=== PATIENT | female | born 1975 | race Caucasian/White ===

== ENCOUNTER 2016-09-19 10:13 | Inpatient (IN) | payer OTHER ==
[~2016-09-19] VITALS: Ht 162.6 cm; Wt 63.5 kg
[~2016-09-19 10:13] MED LIST: TRAM50TA2 PO
[2016-09-19 13:05] VITALS: BP 135/96; PULSE 92; RESP 14
[2016-09-19] MEDS ORDERED: TIZA4TAB4 (13:36)
[2016-09-19] MEDS ORDERED: FLUO40CA (13:36)
[2016-09-19] MEDS ORDERED: TIZA2TAB3 (13:36)
[2016-09-19] MEDS ORDERED: SERXR300 (13:36)
[2016-09-19] MEDS ORDERED: ZOLP12.52 (13:36)
[2016-09-19] MEDS ORDERED: AMPH30CA (13:36)
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
[2016-09-19] MEDS ORDERED: Alum-Mag Hydrox-Simeth 30 mL Suspension PO PRN (13:55)
[2016-09-19] MEDS ORDERED: Benzocaine-Menthol Lozenge 2/Pkg PO PRN (13:55)
[2016-09-19] MEDS ORDERED: Magnesium Hydroxide 10 mL Oral Concentration PO PRN (13:55)
--- NOTE | 2016-09-19 14:25 | NUR ---
Observations 0700 to 1430 Pt arrived on unit at 1143. Pt completed admission process and she is familiar with our unit from previous stay. Pt signed all paperwork and was given a pair of scrubs to change into. Pt was shown to room 219. Pt affect and mood was flat, isolative, sullen and withdrawn. Pt speech and eye contact was ok. Pt was social with staff when approached. Pt attended lunch in D.R. and ate 100% of her meal. Pt maintained behavior throughout the shift. Pt was in her room resting in bed and on the phone. Pt was polite, pleasant and cooperative. Pt was observed every 15 minutes throughout the shift as ordered. Pt is currently resting in bed with eyes open and respirations apparent.
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
--- NOTE | 2016-09-19 19:00 | NUR ---
Nurses Note Evening Patient has remained in her room except for dinner. She was concerned when she learned her ADD medication was not prescribed stating it was the only medication that has "made my life livable." Patient reported having problems with sleeping in spite of taking Seroquel. She contracts for safety and will be monitored q 15min. for safety and support. Addendum: 09/19/16 at 1908 by MARINA TANNER RN Amended: Links added.
--- NOTE | 2016-09-20 04:27 | NUR ---
Pt isolated to room all of shift. Became agitated after talking to , she states he said she was going to be charged with attempted manslaughter. Pt anxious but able to settle and sleep at 2300. Pt observed every 15 minutes as ordered.
--- NOTE | 2016-09-20 05:21 | NUR ---
nursing, nights, 11-7 s/o- has appeared to sleep after 2300 during q 15 minute assessments. a- no apparent distress. p- monitor behavior/emotional state, quality, times and amount of sleep, use and effect of medication. eliel
--- NOTE | 2016-09-20 10:23 | NUR ---
Nursing Day Shift- S- "I don't have any phone numbers with me. (Staff offered to locate Pt's outpatient MD phone #. Pt's Dairy Nutritionist had reported in court today that the Pt. had an appointment with an LAST REPAIRER this coming Friday.) It's my PCP who I see. I haven't had a Pap smear in 13 years. I'm not bleeding now, but it stopped 5-6 days ago and I have some spotting. No..No..never mind." (Pt. declined to have staff assist with changing the appointment or locating the #.) O- Pt. had slept 7.25 hours last night per staff report. She was awake for breakfast and eat well. Pt. attended court. She was tearful when her case was not dropped, and continued until Friday. Pt. reported abdominal cramping pain of 7/10 at 0950. She denied thoughts of self harm. She was offered and declined Ibuprofen o Tylenol. A- Anxiety, situational stressors. P- Continue BHTP.
[2016-09-20 13:25] VITALS: BP 159/116; PULSE 108; RESP 16
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
--- NOTE | 2016-09-20 17:00 | NUR ---
Community Outreach Worker/Counselor: S: "My children are my everything, my world." O: Patient slept 8 hours last night as per staff. She denies S/I and H/I. She denies auditory and visual hallucinations. She did not rate depression and anxiety. A: Patient is cooperative, irritable, distraught, tearful, labile, limited insight, limited judgment. P: Follow care plan, coordinate out-patient providers.
--- NOTE | 2016-09-20 19:03 | NUR ---
Observations 0900 to 1930 Pt affect and mood was isolative, flat, sullen and emotional. Pt was pretty emotional and upset most of the day. Pt ate meals in D.R. and ate approximately 75% of meals. Pt ate snack. Pt behavior was withdrawn. Pt was in her room most of the shift. Pt gives short answers when approached. Pt did not attend groups or unit activities today. Pt was observed every 15 minutes throughout the shift as ordered.
--- NOTE | 2016-09-20 21:50 | NUR ---
Evening shift note 3pm to 11pm Pt visible on unit this shift, ate dinner in dining room alone, no social interaction, declined wrap up group. Affect constricted, mood neutral. Guarded and superficial with this writer editor. Pt reports an improvement in mood reporting depression at a 3, but presentation incongruent . Pt compliant with medication, denies pain, no side effects or medical issues reported or observed. Monitoring ongoing.
--- NOTE | 2016-09-21 05:13 | NUR ---
Nursing Note Noc Pt asleep upon arrival to unit. Sleep time note 2115 with 8hr sleep uninterrupted. Q15 min safety checks done per protocol, no distress noted. No PRN's given WCTM sleep, safety, behavior
--- NOTE | 2016-09-21 05:38 | NUR ---
Pt isolated to room all of shift. Pt asleep at [id number], 2345. Pt observed every 15 minutes as ordered.
[2016-09-21 10:11] VITALS: BP 122/74; PULSE 93; RESP 16
--- NOTE | 2016-09-21 11:43 | NUR ---
Nursing Day Shift- S/O- Pt. appeared asleep at the start of the day shift. She awoke for breakfast and eat well, then returned to bed. Pt. declined to set a goal. She appears flat and guarded with brief responses. Pt. was asked if she was pleased that her would be home soon and stated: "yes." she reported that her mother in law had visited the unit last evening and they had a pleasant visit. Pt. denied anxiety and rated her depression as 3/10. A- Guarded. Seeking discharge. Appears to have little insight or concern for events that led to [facility]. P- Cont. BHTP. Addendum: 09/21/16 at 1345 by PRAKASH DODSON RN At 1230 Pt. asked for a medication for anxiety that she rated as 7/10. Pt. did not have a PRN ordered. She was encouraged and offered alternative stress reduction techniques, and declined. She appears to be resting in her bed at this time.
--- NOTE | 2016-09-21 14:59 | NUR ---
[employer] Assistant Principal./ c.m. S.:"I'm doing ok, mood is good." O.; met with pt. and MD together in pt.'s room. She was in bed resting in the middle of the morning. She "slept well" last night. She said that meds were "good". She denied side effect of medications. She denied SI/HI, denied AH/VH, denied paranoid/delusional thoughts, denied depression. She rated anxiety at 4/10. She said that she was planing to go back home at time of discharge. She spent all morning in her room. She wasn't interested in the unit activities. A.: pt. is cooperative, isolative, quiet, guarded. She has a flat affect. P.: monitor behavior, encourage pt. to spend more time in a public area; follow care plan.
--- NOTE | 2016-09-21 18:17 | PCM.PNPSY ---
Subjective Date of Service Sep 21, 2016 Subjective Patient reports she is somewhat somnolent this morning, but otherwise is doing okay. She reports her mood as "good." She denies side effects or medical complaints. She reports that her children are in the care of her [id number] and she plans to return home on discharge. She reports her is returning home from deployment due to her admission and events prior to admission. Sleep: 8+ hours, "very well." Appetite: "good" Suicidal and homicidal ideation: denies Auditory hallucinations/Visual hallucinations: denies Other Psychotic Symptoms: N/A Anxiety: 4/10 Depression: 0/10 Current Medications Current Medications Cyclobenzaprine HCl 10 mg HS PO Last administered on 09/19/16 20:13; Admin Dose 10 MG; Start 09/19/16 at 21:00; Stop 09/20/16 at 09:35; Status DC Fluoxetine HCl 40 mg HS PO Last administered on 09/20/16 20:53; Admin Dose 40 MG; Start 09/19/16 at 21:00 Quetiapine Fumarate 300 mg HS PO Last administered on 09/20/16 20:54; Admin Dose 300 MG; Start 09/19/16 at 21:00 Trazodone HCl 100-150 MG HS PRN PO Last administered on 09/20/16 20:54; Admin Dose 100 MG; Start 09/19/16 at 22:35 Mental Status Exam Vital Signs Vital Signs Date Time Temp Pulse Resp B/P Pulse Ox O2 Delivery O2 Flow Rate FiO2 09/21/16 10:11 36.3 93 16 122/74 Appearance: Neat/well groomed Attitude: Cooperative, Guarded (mildly) Behavior: No unusual behavior Affect: Restricted Mood: Anxious (mild by report) Thought Process/Associations: Logical/Sequential, Goal Directed Speech Production: Paucity Speech Rate: Normal Speech Articulation: Normal Thought Content: Appropriate Danger to Self/Suicidal Ideati: None Danger to Others: None Hallucinations: Auditory (Denies), Visual (Denies) Consciousness: Alert Orientation: Person, Place, Date, Situation Memory: Grossly Intact Estimate Intellectual Function: Average Attention/Concentration & Cogn: Grossly Intact Insight: Good Judgement: Limited Mental Health Plan The patient is a 40-year-old female who reportedly was admitted under LUI status for transfer from [facility]. The patient reportedly had allegedly taken 5-6 tablets of Ambien CRP 12.5 mg and showed significant agitation and threats of harm to others. Allegedly there was concern of possible suicidal intent. The patient is exhibiting no signs of acute mental illness at this time though may show increase in symptoms when returns. [place] AXIS I 1. Bipolar disorder, mixed type by history. 2. Rule out major depressive disorder, recurrent type, nonpsychotic. 3. Alcohol abuse, in remission per patient report. 4. Posttraumatic stress disorder, chronic. AXIS II Cluster B personality features. AXIS III 1. Status post overdose of Ambien. 2. History of carpal tunnel. AXIS IV Stressors are noted for absence of with assignment overseas, unemployment. AXIS V Global Assessment of Functioning current 40 Medications Trazodone 100-150mg po nightly Fluoxetine 40mg po nightly Quetiapine 300mg po nightly Treatments 1. The patient is admitted to the inpatient unit and will be provided a safe and secure environment. 2. The patient is denying current active suicidality and is not in need of a one-to-one at this time. 3. The patient is encouraged to participate with group and milieu activities. 4. The patient will be seen by the treatment team on a daily basis to assess symptoms, side effects and response to treatment. 5. The patient will be continued on her current medications. 6. Anticipated length of stay 2-3 days. Dieter Lopez MD Sep 21, 2016 14:57
--- NOTE | 2016-09-21 22:27 | NUR ---
Pt spent majority of evening shift in her room resting. On approach pt was pleasant, affect remains blunted, mood neutral to dysphoric, thoughts organized and linear, reports mood is 7/10, denies depressive symptoms and SI, plan or intent. Pt reports she is looking forward to discharge. Pt reports medication are " helping", denies side effects and no medical issues reported.
--- NOTE | 2016-09-22 01:46 | NUR ---
Observations 1900 to 0700 Pt was in bed when my shift started and remained there for the entire night. Pt first appeared asleep at 21:00 and was observed every 15 minutes through the night as directed.
--- NOTE | 2016-09-22 06:25 | NUR ---
Sleep 11p-7a Adequate sleep through the night with no noted distress or awakening per protocol checks. Total sleep 9+ hours/
--- NOTE | 2016-09-22 11:19 | NUR ---
Nursing Day Shift- S- "I don't want to talk to anybody here because I'm afraid it will be used against me. My kosher inspector told me not to talk to CPS. Anything I say they will use against me. I talked to both my kids. They are at my Mother in laws. I apologized. I'm never going to take Ambien again. I took 1 pill and I don't remember anything that happened until I was in the hospital. They know that wasn't me. My is coming home Friday so that we don't loose the kids. My says he never said he was going to press charges. I'm not suicidal and I'm not going to kill myself." O- Pt. awoke at 0900 for breakfast and eat 100%. She appears flat and worried. Pt. initially was resistant to talking, but then became increasingly verbal. She rated depression as 3/10 and anxiety as 6/10. She reported feeling increased anxiety without her outpatient prescribed amphetamine and muscle relaxer. Pt. was offered and took Robaxin 500 mg at 10 AM. She was tearful when discussing the events that led to her hospitalization. Pt. was encouraged to speak with the MD and Last Greaser regarding CPS and her mood. A- Flat, anxious. P- Cont. BHTP.
[2016-09-22] MEDS ORDERED: Amphetamines (Mixed) XR 10 mg ER24 Capsule PO ONE (14:10)
--- NOTE | 2016-09-22 14:20 | NUR ---
Foam Tank Laminator./c.m. S.:"I'm ok. My mood is pretty good. I'm very concerned about being arrested for a possible murder..." O.: met with pt. and MD together to discuss pt.'s progress. She "slept well" last night. She denied SI/HI, denied AH/VH or paranoid/delusional thoughts. She rated anxiety at 3/10 and she denied depression. She talked to her over the phone. She said that he was "very supportive". He is coming to [place] on Friday around 10:00 am. She admitted that she was worried about her future after discharge from here. She agreed to work on her Safety plan. A.: pt. is cooperative, quiet, has a flat affect, tearful at times. P.: monitor behavior, work on follow up, check Safety plan; follow care plan.
--- NOTE | 2016-09-22 14:25 | PCM.PNPSY ---
Subjective Date of Service Sep 22, 2016 Subjective The patient reports that her mood is "pretty good." She denies side effects from medical complaints. She reports that her [place] the airport on [place] at 10 AM. She reports that he is her primary support at this time. She has been speaking with them every other day and he has been supportive regarding the issues with her children. The patient expressed concern about being switched from tizanidine to methocarbamol, but explained to patient that methocarbamol is less centrally acting. Patient stated that her psychiatrist wanted her body to be relaxed at bedtime. The patient is experiencing some increase in anxiety and irritability and difficulty concentrating. She is requesting a restart of her Adderall. Discussed with patient that she will be restarted on a lower dose this afternoon and observed for response. Sleep: 9+ hours, "very well." Appetite: "Great" Suicidal and homicidal ideation: denies Auditory hallucinations/Visual hallucinations: denies Other Psychotic Symptoms: N/A Anxiety: 3/10 this a.m., higher this afternoon. Patient anxious whether they will be pressing charges on her discharge. Depression: 0/10 Current Medications Current Medications Hydroxyzine Pamoate 50 mg Q4 PRN PO Last administered on 09/22/16t 13:23; Admin Dose 50 MG; Start 09/22/16 at 13:10 Mental Status Exam Appearance: Neat/well groomed Attitude: Cooperative, Guarded (mildly) Behavior: No unusual behavior, Tearful (this afternoon) Affect: Restricted Mood: Anxious Thought Process/Associations: Logical/Sequential, Goal Directed Speech Production: Normal Speech Rate: Normal Speech Articulation: Normal Thought Content: Appropriate Danger to Self/Suicidal Ideati: None Danger to Others: None Hallucinations: Auditory (Denies), Visual (Denies) Consciousness: Alert Orientation: Person, Place, Date, Situation Memory: Grossly Intact Estimate Intellectual Function: Average Attention/Concentration & Cogn: Grossly Intact Insight: Good Judgement: Good Mental Health Plan The patient is a 40-year-old female who reportedly was admitted under LUI status for transfer from [facility]. The patient reportedly had allegedly taken 5-6 tablets of Ambien CRP 12.5 mg and showed significant agitation and threats of harm to others. Allegedly there was concern of possible suicidal intent. The patient reports having been amnestic around the time of the zolpidem ingestion without intent of harming self or others. She is experiencing increasing irritability and mood swings and poor concentration consistent with Adderall withdrawal. The patient was previously prescribed 30 mg which is above the typical target dose of 20 mg. Outside of this milder irritability, she is not exhibiting any major psychiatric symptoms. [place] AXIS I 1. Bipolar disorder, mixed type by history. 2. Rule out major depressive disorder, recurrent type, nonpsychotic. 3. Alcohol abuse, in remission per patient report. 4. Posttraumatic stress disorder, chronic. 5. Attention deficit disorder by patient report AXIS II Cluster B personality traits AXIS III 1. Status post overdose of Ambien. 2. History of carpal tunnel. AXIS IV Stressors are noted for absence of with assignment overseas, unemployment. AXIS V Global Assessment of Functioning current 40 Medications Trazodone 100-150mg po nightly Fluoxetine 40mg po nightly Quetiapine 300mg po nightly Treatments 1. The patient is admitted to the inpatient unit and will be provided a safe and secure environment. 2. The patient is denying current active suicidality and is not in need of a one-to-one at this time. She agrees to notify staff should she have thoughts of harming herself or others. 3. The patient is encouraged to participate with group and milieu activities. 4. The patient will be seen by the treatment team on a daily basis to assess symptoms, side effects and response to treatment. 5. The patient will be continued on her current medications. 6. Will restart Adderall XR 10 mg today and 20 mg as of tomorrow. 7. Continue methocarbamol as less likely to be centrally acting. 8. Anticipated length of stay 2-3 days. Dieter Lopez MD Sep 22, 2016 14:25
--- NOTE | 2016-09-22 22:04 | NUR ---
Evening shift 3pm to 11pm Pt isolating less in her room than in previous days, visible on the unit working on activity pages and talking with peers. Pt reports feeling less irritable and distracted since resuming Adderall. She reports depression and anxiety 10/04. Hygiene and appetite are within normal limits. She is less guarded and more able to engage in spontaneous conversation. Thoughts linear and logical. Denies SI, plan or intent. No side effects reported or medical complaints expressed. Pt took trazodone and Robaxin prn with meds. Addendum: 09/22/16 at 2213 by DENISSE JACINTO RN Amended: Links added.
--- NOTE | 2016-09-23 03:59 | NUR ---
Observations from [id number] Pts affect was flat and pt was isolative this evening, keeping to herself and spending the majority of the evening resting in her room. Pt did not attend wrap up group, but this marketing underwriter checked in with her and she said she met her goal of staying positive and her mood was 7/10. Pt was noted asleep at 2145 and has appeared to remain asleep throughout the night. Pt has been monitored every 15 minutes as directed.
--- NOTE | 2016-09-23 05:19 | NUR ---
Sleep 11p-7a Adequate sleep through the night with no noted distress or awakening per protocol checks. Total sleep 7.25 hours. Trazodone and Robaxin requested and issued to assist with sleep.
[2016-09-23] MEDS: Amphetamines (Mixed) XR 10 mg ER24 Capsule PO SCH (08:33)
[2016-09-23 10:05] VITALS: BP 111/79; PULSE 80; RESP 10
--- NOTE | 2016-09-23 14:37 | PCM.PNPSY ---
Subjective Date of Service Sep 23, 2016 Subjective I spent 60 minutes both reviewing treatment plan and providing supportive/ educational psychotherapy. I spent more than 50% of the time counseling the patient. I reviewed the treatment plan with the patient and discussed options available including the potential risks, benefits and side effects. Debra reports a marked improvement in thought organization and mood stability. Staff reports that she has been active and participating well in one-to-one unit and group activities. She slept 8 hours and denies depression or psychotic symptoms review. She spoke at length about events leading up to episode where she took Ambien, went to sleep and does not recall the dramatic presentation of threatening to harm her son. She repeatedly describes no suicidal ideation or homicidal ideation. She denied a history of harm to others. 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 She presents very calm, contained and rational. She denies medication side effects. Patient was able to identify her medications and what they were used to treat. She appeared to understand the need for medications by the questions she asked during our discussion. Current Medications Current Medications Amphetamine Aspartate/ Amphetam Sulf 10 mg ONCE ONCE PO Last administered on 15:00; Admin Dose 10 MG; Start 09/22/16 at 14:10; Stop 09/22/16 at 14:20 ; Status DC Amphetamine Aspartate/ Amphetam Sulf 20 mg DAILY PO Last administered on 08:33; Admin Dose 20 MG; Start 09/23/16 at 08:30 Hydroxyzine Pamoate 50 mg Q4 PRN PO Last administered on 09/22/16 13:23; Admin Dose 50 MG; Start 09/22/16 at 13:10 Mental Status Exam Vital Signs Vital Signs Date Time Temp Pulse Resp B/P Pulse Ox O2 Delivery O2 Flow Rate FiO2 09/23/16 10:05 36.9 80 10 111/79 Appearance: Neat/well groomed Attitude: Pleasant, Cooperative Behavior: No unusual behavior, Tearful (this afternoon) Affect: Restricted Mood: Euthymic Thought Process/Associations: Logical/Sequential, Goal Directed Speech Production: Normal Speech Rate: Normal Speech Articulation: Normal Thought Content: Appropriate Danger to Self/Suicidal Ideati: None Danger to Others: None Consciousness: Alert Orientation: Person, Place, Date, Situation Memory: Grossly Intact Estimate Intellectual Function: Average Attention/Concentration & Cogn: Grossly Intact Insight: Good Judgement: Good Mental Health Plan The patient is a 40-year-old female who was admitted under LUI status for transfer from [facility]. The patient had allegedly taken 5-6 tablets of Ambien CRP 12.5 mg and showed significant agitation and threats of harm to others. Initially there was concern of possible suicidal intent. The patient reports having been amnestic around the time of the zolpidem ingestion without intent of harming self or others. She is no longer experiencing difficulty with mood or thought organization.. She is not exhibiting any major psychiatric symptoms. I reviewed her records as well as spent a significant amount of time reviewing client's past history. She was able to detail a reasonable safety plan with me. She agreed to have her come meet with me tomorrow at noon. If her is able to collaborate her history I am recommending dropping the 14 day hold petition and discharging to home with recommendations for outpatient care [place] AXIS I 1. 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 2. Alcohol abuse, in remission per patient report. 3. Posttraumatic stress disorder, chronic. 4. Attention deficit disorder by patient report AXIS II deferred AXIS III 1. Status post overdose of Ambien. 2. History of carpal tunnel. AXIS IV Stressors are noted for absence of with assignment overseas, unemployment. AXIS V Global Assessment of Functioning current 50 Treatments 1. The patient is admitted to the inpatient unit and will be provided a safe and secure environment. 2. The patient is denying current active suicidality and is not in need of a one-to-one at this time. She agrees to notify staff should she have thoughts of harming herself or others. 3. The patient is encouraged to participate with group and milieu activities. 4. The patient will be seen by the treatment team on a daily basis to assess symptoms, side effects and response to treatment. 5. The patient will be continued on her current medications. 6. Adderall XR 10 mg today and 20 mg Trazodone 100-150mg po nightly Fluoxetine 40mg po nightly Quetiapine 300mg po nightly 7. Continue methocarbamol as less likely to be centrally acting. 8. I plan to drop clients hold tomorrow, will either have her sign in voluntary if she requests further treatment or discharge to home with and follow-up with intensive outpatient services. Marin Rome MD Sep 23, 2016 14:37
[2016-09-23] MEDS ORDERED: Amphetamines (Mixed) 10 mg Tablet PO ONE (17:35)
--- NOTE | 2016-09-23 17:36 | NUR ---
Observations 0700 to 1900 Pt affect and mood was a little improved today. Pt was not as emotional and upset as previous days. Pt ate meals in D.R. and ate approximately 75% of meals. Pt ate snack. Pt behavior was withdrawn. Pt was out of her room more today. Pt gives short answers when approached. Pt attended groups and unit activities today. Pt sat in D.R. coloring with peers. Pt was observed every 15 minutes throughout the shift as ordered. Addendum: 09/23/16 at 1803 by [facility] Pt attended community meeting and set a goal for the day. Pt rated her mood 5-6 out of 10, with 10 being the highest.
--- NOTE | 2016-09-23 18:17 | NUR ---
Nursing Day shift: Debra has been out on the open unit, participating with peers in groups. Initially staff thought she was going to court tomorrow but after Dr's assessment, this plan changed. Pt was upset because her relative insisted that she still was going to court. After situation was clarified with Debra, she calmed. Debra is aware that she is to meet with Dr. Garrett tomorrow at noon with her who will return from deployment tomorrow. Mother in law ([phone]) contacted by designer/writer at 1800 and confirmed she will bring to unit for meeting. Debra was assertive in requesting Adderall in pm. Received 10 mg as ordered at 1800. At 1800, denied any Anxiety and suicidal ideation and rated depression at 2/10.
--- NOTE | 2016-09-23 21:30 | NUR ---
NURS EVENING Orientation: x4 Mood: "I'm doing good now. I'm at a 9 out of 10, so I'm doing good." Rated general mood at 9 out 10 (10 being excellent). Denies anxiety, depression. Affect:Appropriate Behavior: Socializing appropriately with fellow pts. Up in day room much of shift. Denies SI, HI. Expressed frustration about miscommunication about D/C. Pt understands of current D/C plan. PRN/NURS Notes: Trazadone 100 mg. HS Addendum: 09/23/16 at 2134 by AGUSTINA AQUINO RN Amended: Links added.
--- NOTE | 2016-09-24 01:20 | NUR ---
Observations 1900 to 0700 Pt was out in the DR more tonight than my last shift worked. Pt was more social as well. Pt first appeared asleep at 22:45 and was observed every 15 minutes through the night as directed.
--- NOTE | 2016-09-24 04:45 | NUR ---
blocker [employer] base 11pm to 7am Pt appeared to sleep thought the night, in no acute distress, monitored with q 15 minute checks for safety and location.
[2016-09-24] MEDS: Amphetamines (Mixed) XR 10 mg ER24 Capsule PO SCH (09:54)
[2016-09-24 10:00] VITALS: BP 112/80; PULSE 96; RESP 16
[2016-09-24] MEDS ORDERED: AMPH10CA PO (11:28)
[2016-09-24] MEDS ORDERED: ROB500 PO (11:28)
[2016-09-24] MEDS ORDERED: FLUO20CA25 PO (11:28)
[2016-09-24] MEDS ORDERED: QUET300T44 PO (11:28)
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
--- NOTE | 2016-09-24 12:44 | NUR ---
Nursing Discharge- Pt. discharged at 1155 today to the care of the [place] [employer]. She had slept 7 plus hours per shift report. Pt. was awake and appropriately dressed for breakfast. She appeared to be quietly socializing with select peers. She denied any thoughts of suicide and rated her depression as 3/10. Pt. had completed her safety plan. She expressed an understanding of her medication and follow up plans. Copies of those, along with original copies of her prescriptions and her home medications were handed to the officers. Pt's LUI hold to lapse with discharge today.
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
--- NOTE | 2016-09-24 15:07 | NUR ---
Human Resources Training Manager./ c.m. S.:"I'm ok." O.: pt. completed Safety plan. She denied SI/HI, denied AH/VH or paranoid/delusional thoughts. She has follow up appt. for medication with his psychiatric provider Vitaliy Hernandez DO on October 14 at 11:30 am [facility] in [place] ([phone] ext. [phone]). Pt. would be picked up by [place] Police at time of discharge. A.: pt. is cooperative, pleasant, anxious about her future. P.: monitor behavior, follow care plan.
[2016-09-24 15:14] VITALS: BP 112/80; PULSE 96; RESP 16
== END 2016-09-24 11:55 | DRG 897 ==
LOC: MHC 11:46
PROVIDERS: ADMIT Psychiatry & Neurology Psychiatry; ATTEND Psychiatry & Neurology Psychiatry
DX: F19.959 Other psychoactive substance use, unspecified with psychoactive substance-induced psychotic disorder, unspecified (principal); F43.12 Post-traumatic stress disorder, chronic; Z63.31 Absence of family member due to military deployment; R41.3 Other amnesia